=== PATIENT | female | born 1975 | race Caucasian/White ===

== ENCOUNTER 2016-08-31 13:33 | Outpatient (CLI) | payer OTHER ==
--- NOTE | 2016-08-31 18:10 | DIAGNOSTIC IMAGING REPORT ---
PROCEDURE: MG UNILATERAL DIAG-LT W/CAD INDICATION: LT BREAST MASS TECHNIQUE: Standard CC and MLO views of the left breast. Spot compression mammographic views of the left breast in the CC and MLO projection. A direct lateral left breast mammogram using CAD. The patient then went to ultrasound where galeano-scale and color Doppler sonographic imaging of the left breast was performed. COMPARISON: 11/13/2015, 02/08/2015, 11/23/2012 FINDINGS: Mammograms: Heterogeneous, moderately dense fibroglandular tissue is present in the left breast. An ill-defined nodular region is present adjacent to the palpable lump marker in the medial left breast on the CC view. Slight skin thickening, most evident in the direct lateral and MLO view compared to prior films. No obvious architectural distortion. Ultrasound: Heterogeneous fibrous and fibrocystic tissue is seen. In the upper inner left breast, there is a 12 mm cluster of ectatic ducts and probably apocrine metaplasia. One of the cystic spaces has increased slightly in size compared to the prior study but remains overall fairly stable in morphology. No increase in vascularity or solid component. There are no new suspicious solid lesions or abnormal shadowing. In the periareolar region, ductal ectasia is prominent. No definite suspicious infiltrative changes of the skin. Similar heterogeneous fibrocystic tissue is seen in the anterior right breast. IMPRESSION: 1. Palpable abnormality corresponds to a small focus of apocrine metaplasia/fibrocystic change in the upper inner left breast, similar to slightly more prominent (with respect to the cystic space) compared to the prior study. No suspicious change. 2. Incidental skin thickening in the periareolar region of the left breast with associated history of slight retraction of the left nipple. No definite inflammatory changes in the periareolar breast tissue. Clinical follow-up however is recommended. 3. Early follow-up left breast ultrasound at the time of screening mammography is recommended to ascertain stability (3 months). 4. Findings and recommendations were discussed with the patient. RESULT CODE: 3- Probably benign. A. A negative report should not delay biopsy if a dominant or clinically suspicious mass is present. 10-15% of cancers are not identified by x-ray. B. A negative report may reinforce clinical impression. C. Adenosis and dense breasts may obscure an underlying neoplasm. D. False positive reports average 6-10%. E.. A yearly screening mammogram is recommended. A reminder letter will be scheduled.
== END 2016-08-31 23:00 ==
LOC: MAM SRH 13:33
DX: N63 Unspecified lump in breast (principal)

== ENCOUNTER 2016-09-23 18:21 | Emergency (ER) | payer OTHER ==
--- NOTE | 2016-09-23 20:21 | DIAGNOSTIC IMAGING REPORT ---
PROCEDURE: XR CHEST 1 VIEW INDICATION: CHEST PAIN TECHNIQUE: Portable AP view (1920 hours). COMPARISON: Compared to chest x-ray on 12/10/2014. FINDINGS: Allowing for overlying wires and electrodes, lungs are clear. Heart and mediastinum are normal. Thorax is normal. IMPRESSION: 1. Negative chest.
--- NOTE | 2016-09-23 22:51 | ED NURSING NOTES ---
Clinical Report - Nurses [facility] [address] [place] [address] 09/23/2016 18:22 Patient: MELECIO JONES TRIAGE Triage time 18:25. Acuity: LEVEL 3. Chief Complaint: CHEST PAIN and (Onset 3 hours ago substernal chest pain that has developed into left upper chest pain that radiates into left shoulder, also epigastric pain. Pain 7/10, pain is not reproducible.). MARK COMA SCORE: [place] Coma Scale: 15- eyes open spontaneously (4); best verbal response- oriented x 4 (5); best motor response- obeys commands (6). --18:35 Pérez Drake R.N. 18:27 09/23/16. BP: 155/98 (regular adult cuff) taken on the left arm, while lying. HR: 108. RR: 16. O2 saturation: 98% on room air. Temp: 98.4 F (oral). Pain level now: 7/10. --18:35 Pérez Drake R.N. Weight: 79.3 kg stated. Height/Length: 61 inches Per Patient. BMI: 33. --18:32 Pérez Drake R.N. Medications Gabapentin Oral 800 mg, 3x a day. Tylenol Oral. --18:30 Pérez Drake R.N. Erivisartin?. --18:31 Pérez Drake R.N. Protonix Oral. --18:31 Pérez Drake R.N. Allergies Augmentin.(rash) Naprosyn. Definite Moderate(rash) NSAIDs. (bleeding ) --18:30 Pérez Drake R.N. History Arrived by private vehicle. Historian: patient. Accompanied by family. The patient has had difficulty breathing (mild). No sweating episodes or nausea. 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 SOCIAL HX: Heavy tobacco smoker (cigarette)- less than 1 pack per day. No alcohol use or drug use. ABUSE ASSESSMENT: No report of abuse. --18:35 Pérez Drake R.N. PROBLEMS: Periorbital Cellulitis. Chronic Headache. Abdominal Pain. Pharyngitis. URI. Chronic Back Pain. Gastroesophageal Reflux Disease. Gestational diabetes mellitus. Palpitations. Blood in stool. Back Injury. Asthma. Sinus Problems. Hypertension. Migraine Headache. --18:32 Préez Drake R.N. ADDITIONAL SURGERIES: Back Surgery. Colonoscopy. Lap hyster. Shoulder Surgery. Sinus Surgery. Tonsillectomy. --18:32 Pérez Drake R.N. Assessment GENERAL / NEURO / PSYCH: Alert. Oriented X 4. Appears in pain and anxious. RESPIRATORY: Respirations not labored. Chest nontender. Breath sounds within normal limits. CVS: Cardiac rhythm: sinus tachycardia; unifocal PVCs. Capillary refill less than 2 seconds. GI / : Abdomen soft and nontender. SKIN: Mucous membranes are pink. Skin is warm and dry. --18:35 Pérez Drake R.N. Interventions To treatment room. --18:35 Pérez Drake R.N. PHYSICAL ASSESSMENT To room via wheelchair. GENERAL / NEURO / PSYCH: Alert. Oriented X 4. Appears in pain and anxious. HEENT: Mucous membranes are pink. RESPIRATORY: Respirations not labored. Breath sounds within normal limits. CVS: Cardiac rhythm: sinus tachycardia; unifocal PVCs. Heart sounds within normal limits. Pulses within normal limits. Capillary refill less than 2 seconds. GI / : Abdomen soft and nontender. EXTREMITIES: No lower extremity edema. SKIN: Skin is warm and dry. Normal skin turgor. Skin is non-tender. --18:36 Pérez Drake R.N. NURSING PROGRESS NOTES Cardiac rhythm: sinus tachycardia; unifocal PVCs. telemetry monitor, pulse oximeter and NIBP monitor placed on patient; front desk monitor- Lead II and V1; monitor alarms on. Patient gowned. Head of bed elevated. Two patient identifiers checked. Call light placed in reach. Bed placed in lowest position. Brakes of bed on. Patient ready for evaluation- chart flagged. --18:37 Pérez Drake R.N. EKG time: (458). EKG was ordered, performed by a tech and shown to the ED physician. --18:41 Shannon Myers ER Tech1 18:57 09/23/2016 Aspirin PO Tablets 325 mg given. Allergies verified and confirmed 5 rights. --19:11 Pérez Drake R.N. 18:57 09/23/2016 Nitroglycerin SL Tablets 0.4 mg given. Allergies verified and confirmed 5 rights. --19:11 Pérez Drake R.N. 19:00 09/23/2016 Site #1 started via IV in the left hand with an 20g angiocath, with aseptic technique and good blood return; one attempt. Blood drawn: rainbow set. Labeled in the presence of the patient and sent to the lab. Saline lock flushed with 10 mL saline. --19:12 Pérez Drake R.N. 19:09/23/2016 Nitroglycerin SL Tablets 0.4 mg given. Allergies verified and confirmed 5 rights. --19:12 Pérez Drake R.N. 19:09/23/2016 Nitroglycerin SL Response: no adverse reaction symptoms are the same. The patient feels the same. --19:12 Pérez Drake R.N. Care transferred and report given (FRANCISCO JAVIER Castellanos). --19:16 Pérez Drake R.N. 20:20 09/23/2016 Acetaminophen (APAP) PO 1000 mg given. Allergies verified and confirmed 5 rights. --20:20 Sheriff Shi R.N. ( Received report from outgoing RN. Assessed patient at bedside, c/o headache, medicated with tylenol 1000mg po.). --20:21 Sheriff Shi R.N. 21:10 09/23/16. BP: 134/81. HR: 81. RR: 18. O2 saturation: 97% at 8 liters/minute. Pain level now: 12/17. --21:11 Sheriff Shi R.N. 22:57 09/23/2016 Site #1 removed upon discharge. Bandaid applied. --22:57 Sheriff Shi R.N. DISPOSITION / DISCHARGE Condition at departure: stable. No learning barriers present. Discharge instructions provided and reviewed with the patient. Reviewed medication(s) side effects, precautions, dosing and course information. Prescription(s) given to the patient. Patient verbalized understanding. Written instructions provided in Divehi. The patient was discharged by the physician. She was discharged home and accompanied by spouse. She left the Emergency Department ambulatory and via private vehicle. Spouse driving. --22:57 Sheriff Shi R.N. 22:52 09/23/16. BP: 146/92. HR: 76. RR: 18. O2 saturation: 96%. Temp: 98.2 F. Pain level now: 06/19. --22:57 Sheriff Shi R.N. Locked/Released at 09/23/2016 22:58 by Sheriff Shi R.N.
--- NOTE | 2016-09-23 22:51 | ED CLINICAL REPORT ---
Clinical Report - Physicians/Mid Levels [facility] [address] [place] [address] 09/23/2016 18:22 Patient: MELECIO JONES Time Seen: 18:44; initial patient contact, initial documentation, patient care assumed. Arrived- By private vehicle. Historian- patient. HISTORY OF PRESENT ILLNESS Chief Complaint: CHEST PAIN and DISCOMFORT. At its maximum, severity described as moderate. When seen in the E.D., severity described as moderate. Modifying factors. Not worsened by anything. Not relieved by anything. 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 It was abrupt in onset and has been constant. Onset during standing at sink doing dishes. It is described as pressure and "pain" and it is described as located in the left chest area and radiating to the left shoulder. No nausea, vomiting or diaphoresis. She has had difficulty breathing at rest. Similar symptoms previously: None. Recent medical care: Not recently seen/assessed. REVIEW OF SYSTEMS No cough. All systems otherwise negative, except as recorded above. PAST HISTORY See nurses notes. PROBLEMS: Periorbital Cellulitis. Chronic Headache. Abdominal Pain. Pharyngitis. URI. Chronic Back Pain. Gastroesophageal Reflux Disease. Gestational diabetes mellitus. Palpitations. Blood in stool. Back Injury. Asthma. Sinus Problems. Hypertension. Migraine Headache. --18:32 Pérez Drake R.N. ADDITIONAL SURGERIES: Back Surgery. Colonoscopy. Lap hyster. Shoulder Surgery. Sinus Surgery. Tonsillectomy. --18:32 Pérez Drake R.N. SOCIAL HISTORY Heavy tobacco smoker. No alcohol use or drug use. No recent travel. Is a local resident. FAMILY HISTORY History of heart disease in first-degree relative (father). ADDITIONAL NOTES The nursing notes have been reviewed with agreement regarding the chief complaint, HPI, ROS, PMH and patient medications and allergies. PHYSICAL EXAM Vital Signs: 09/23/2016 18:27 BP: 155/98. HR: 108. RR: 16. O2 saturation: 98%. Temp: 98.4 F. Pain level now: 11/16. Have been reviewed as abnormal. Hypertensive. Tachycardic. Respiratory rate normal. Temperature normal. Oxygen saturation normal. Appearance: Alert. Oriented X3. No acute distress. Eyes: Pupils equal, round and reactive to light. Eyes normal inspection. ENT: Pharynx normal. Neck: Normal inspection. Neck supple. CVS: Heart rate / rhythm abnormal. Tachycardia (ventricular rate = 110). Heart sounds normal. Pulses normal. Respiratory: No respiratory distress. Breath sounds normal. Chest nontender. Back: Normal external inspection. Skin: Skin warm and dry. Normal skin color. No rash. Normal skin turgor. Extremities: Extremities exhibit normal ROM. No lower extremity edema. Neuro: Oriented X 3. No motor deficit. No sensory deficit. LABS, X-RAYS, AND EKG EKG: EKG time: (1830). No acute process. No acute ischemia. Normal EKG. Rate: 109. Regular narrow-complex tachycardia (ventricular rate 109). Sinus tachycardia. Normal EKG. The study has been interpreted contemporaneously by me (and dr bello). The EKG appears to be a good tracing. Interpretation time: 1930. Chest X-ray: Normal Chest X-Ray. (IMPRESSION: 1. Negative chest. Electronically Final signed by:Cholo Fatima MD 09/23/2016 8:16:43 PM). The X-rays were interpreted by the radiologist and contemporaneously by me. PROGRESS AND PROCEDURES Course of Care: 18:49 09/23/16. pt has brief david, nothing alarming 2109. pt updated with current results and aware we are waiting on 2nd set of enzymes 22:49 09/23/16. Care accepted from Eben Zapata, went over history and findings from current w/u. 2nd set of CE's were again neg. i confirmed H&P and agree with her findings. Differential Diagnosis: I considered muscle strain, costochondritis, myositis, pleurisy, myocardial infarction, intermediate coronary syndrome, unstable angina, angina, aortic dissection, mitral valve prolapse, pericarditis, palpitations, pulmonary embolism, pneumonia, pneumothorax, lung cancer, gastroesophageal reflux disease, esophagitis and esophageal spasm as a possible cause of chest pain in this patient. This is a partial list of diagnoses considered. Above considerations are based on history, physical exam, reassessment, laboratory data, X-Ray data and EKG. Differential diagnosis was discussed with patient. Disposition: Discharged home in good and improved condition. Condition: good. CLINICAL IMPRESSION Atypical chest pain .12 lead EKG performed. INSTRUCTIONS Your Current Medications: CONTINUE TAKING THE FOLLOWING MEDICATIONS: Erivisartin?*. Gabapentin Oral : 800 mg 3x a day. Protonix Oral. Tylenol Oral. Prescription Medications: Tramadol 50 mg: take 1 orally every 6 hours as needed for pain and stiffness. Do not take more than 8 tablets in a 24 hour period. Dispense twenty (20). No refills. Follow-up: Follow up with your doctor in about two days. Call for an appointment. Screening today revealed the patient's blood pressure to be in the pre-hypertensive range. The patient should follow up with a primary care provider for blood pressure management. (Electronically signed by Demetrius aVlenzuela Dr. 09/24/2016 0:01)
--- NOTE | 2016-09-23 22:51 | ED ORDER SUMMARY ---
..... Patient: MELECIO JONES OrderSheet [facility] VisitID: [id number] [address] [place] [address] 41y, F Registration Date/Time: 09/23/2016 ORDER SHEET Weight: 79.3 kg (stated) Allergies: Augmentin, Naprosyn, NSAIDs GENERAL ORDERS: Chest 1V Urgent (18:49 09/23/2016 HBivens A.R.N.P.) (Ack 18:52 LNations ER Tech1) (19:27 MCampbell) Investigator Utility Bill Complaints (Continuous) (18:49 09/23/2016 HBivens A.R.N.P.) (18:51 LNations ER Tech1) CBC w Diff Urgent (18:49 09/23/2016 HBivens A.R.N.P.) (Ack 18:52 LNations ER Tech1) (19:12 JSimbeck R.N.) CMP Urgent (18:49 09/23/2016 HBivens A.R.N.P.) (Ack 18:52 LNations ER Tech1) (19:12 JSimbeck R.N.) CPK Urgent (18:49 09/23/2016 HBivens A.R.N.P.) (Ack 18:52 LNations ER Tech1) (19:12 JSimbeck R.N.) Troponin-I Urgent (18:49 09/23/2016 HBivens A.R.N.P.) (Ack 18:52 LNations ER Tech1) (19:12 JSimbeck R.N.) Serum Qualitative Urgent (18:49 09/23/2016 HBivens A.R.N.P.) (Ack 18:52 LNations ER Tech1) (19:12 JSimbeck R.N.) Oxygen (2 L/min) (NC) (18:49 09/23/2016 HBivens A.R.N.P.) (Ack 18:52 LNations ER Tech1) (18:55 JSimbeck R.N.) EKG - ER Stat (18:52 09/23/2016 LNations ER Tech1 verbal order read back to HBivens A.R.N.P.) (18:52 LNations ER Tech1) Troponin-I Urgent (19:44 09/23/2016 HBivens A.R.N.P.) (Ack 20:18 CHategekimana) CPK Urgent (19:44 09/23/2016 HBivens A.R.N.P.) (Ack 20:18 CHategekimana) MEDICATION ORDERS: Aspirin PO 325 mg (Do not crush or chew, NOW) (18:49 09/23/2016 HBivens A.R.N.P.) (19:11 JSimbeck R.N.) NitroGLYCERIN SL 0.4 mg (x3 PRN Chest Pain) (18:49 09/23/2016 HBivens A.R.N.P.) (19:11 CHAYAimbeck R.N.) Acetaminophen PO 1,000 mg (NOW) (20:15 09/23/2016 HBivens A.R.N.P.) (20:20 Chiki R.N.) IV FLUIDS: IV Saline Lock (18:49 09/23/2016 HBivens A.R.N.P.) (19:12 JSimbeck R.N.) ORDER SHEET NOTES: [Electronically signed by Sheriff Beena Shi (22:58 09/23/2016)] [Electronically signed by Demetrius Valenzuela Dr. (00:01 09/24/2016)] [Electronically locked/signed by Sheriff Beena Shi (22:58 09/23/2016)]
--- NOTE | 2016-09-23 22:51 | ED NURSING NOTES ---
Clinical Report - Nurses [facility] [address] [place] [address] 09/23/2016 18:22 Patient: MELECIO JONES TRIAGE Triage time 18:25. Acuity: LEVEL 3. Chief Complaint: CHEST PAIN and (Onset 3 hours ago substernal chest pain that has developed into left upper chest pain that radiates into left shoulder, also epigastric pain. Pain 7/10, pain is not reproducible.). MARK COMA SCORE: [place] Coma Scale: 15- eyes open spontaneously (4); best verbal response- oriented x 4 (5); best motor response- obeys commands (6). --18:35 Pérez Drake R.N. 18:27 09/23/16. BP: 155/98 (regular adult cuff) taken on the left arm, while lying. HR: 108. RR: 16. O2 saturation: 98% on room air. Temp: 98.4 F (oral). Pain level now: 7/10. --18:35 Pérez Drake R.N. Weight: 79.3 kg stated. Height/Length: 61 inches Per Patient. BMI: 33. --18:32 Pérez Drake R.N. Medications Gabapentin Oral 800 mg, 3x a day. Tylenol Oral. --18:30 Pérez Drake R.N. Erivisartin?. --18:31 Pérez Drake R.N. Protonix Oral. --18:31 Pérez Drake R.N. Allergies Augmentin.(rash) Naprosyn. Definite Moderate(rash) NSAIDs. (bleeding ) --18:30 Pérez Drake R.N. History Arrived by private vehicle. Historian: patient. Accompanied by family. The patient has had difficulty breathing (mild). No sweating episodes or nausea. 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 SOCIAL HX: Heavy tobacco smoker (cigarette)- less than 1 pack per day. No alcohol use or drug use. ABUSE ASSESSMENT: No report of abuse. --18:35 Pérez Drake R.N. PROBLEMS: Periorbital Cellulitis. Chronic Headache. Abdominal Pain. Pharyngitis. URI. Chronic Back Pain. Gastroesophageal Reflux Disease. Gestational diabetes mellitus. Palpitations. Blood in stool. Back Injury. Asthma. Sinus Problems. Hypertension. Migraine Headache. --18:32 Pérez Drake R.N. ADDITIONAL SURGERIES: Back Surgery. Colonoscopy. Lap hyster. Shoulder Surgery. Sinus Surgery. Tonsillectomy. --18:32 Pérez Drake R.N. Assessment GENERAL / NEURO / PSYCH: Alert. Oriented X 4. Appears in pain and anxious. RESPIRATORY: Respirations not labored. Chest nontender. Breath sounds within normal limits. CVS: Cardiac rhythm: sinus tachycardia; unifocal PVCs. Capillary refill less than 2 seconds. GI / : Abdomen soft and nontender. SKIN: Mucous membranes are pink. Skin is warm and dry. --18:35 Pérez Drake R.N. Interventions To treatment room. --18:35 Pérez Drake R.N. PHYSICAL ASSESSMENT To room via wheelchair. GENERAL / NEURO / PSYCH: Alert. Oriented X 4. Appears in pain and anxious. HEENT: Mucous membranes are pink. RESPIRATORY: Respirations not labored. Breath sounds within normal limits. CVS: Cardiac rhythm: sinus tachycardia; unifocal PVCs. Heart sounds within normal limits. Pulses within normal limits. Capillary refill less than 2 seconds. GI / : Abdomen soft and nontender. EXTREMITIES: No lower extremity edema. SKIN: Skin is warm and dry. Normal skin turgor. Skin is non-tender. --18:36 Pérez Drake R.N. NURSING PROGRESS NOTES Cardiac rhythm: sinus tachycardia; unifocal PVCs. monitor and storage bin tender, pulse oximeter and NIBP monitor placed on patient; cardiac rehabilitation specialist- Lead II and V1; monitor alarms on. Patient gowned. Head of bed elevated. Two patient identifiers checked. Call light placed in reach. Bed placed in lowest position. Brakes of bed on. Patient ready for evaluation- chart flagged. --18:37 Pérez Drake R.N. EKG time: (604). EKG was ordered, performed by a tech and shown to the ED physician. --18:41 Shannon Myers ER Tech1 18:57 09/23/2016 Aspirin PO Tablets 325 mg given. Allergies verified and confirmed 5 rights. --19:11 Pérez Drake R.N. 18:57 09/23/2016 Nitroglycerin SL Tablets 0.4 mg given. Allergies verified and confirmed 5 rights. --19:11 Pérez Drake R.N. 19:00 09/23/2016 Site #1 started via IV in the left hand with an 20g angiocath, with aseptic technique and good blood return; one attempt. Blood drawn: rainbow set. Labeled in the presence of the patient and sent to the lab. Saline lock flushed with 10 mL saline. --19:12 Pérez Drake R.N. 19:09/23/2016 Nitroglycerin SL Tablets 0.4 mg given. Allergies verified and confirmed 5 rights. --19:12 Pérez Drake R.N. 19:09/23/2016 Nitroglycerin SL Response: no adverse reaction symptoms are the same. The patient feels the same. --19:12 Pérez Drake R.N. Care transferred and report given (FRANCISCO JAVIER Castellanos). --19:16 Pérez Drake R.N. 20:20 09/23/2016 Acetaminophen (APAP) PO 1000 mg given. Allergies verified and confirmed 5 rights. --20:20 Sheriff Shi R.N. ( Received report from outgoing RN. Assessed patient at bedside, c/o headache, medicated with tylenol 1000mg po.). --20:21 Sheriff Shi R.N. 21:10 09/23/16. BP: 134/81. HR: 81. RR: 18. O2 saturation: 97% at 8 liters/minute. Pain level now: 12/17. --21:11 Sheriff Shi R.N. 22:57 09/23/2016 Site #1 removed upon discharge. Bandaid applied. --22:57 Sheriff Shi R.N. DISPOSITION / DISCHARGE Condition at departure: stable. No learning barriers present. Discharge instructions provided and reviewed with the patient. Reviewed medication(s) side effects, precautions, dosing and course information. Prescription(s) given to the patient. Patient verbalized understanding. Written instructions provided in Greek. The patient was discharged by the physician. She was discharged home and accompanied by spouse. She left the Emergency Department ambulatory and via private vehicle. Spouse driving. --22:57 Sheriff Shi R.N. 22:52 09/23/16. BP: 146/92. HR: 76. RR: 18. O2 saturation: 96%. Temp: 98.2 F. Pain level now: 06/19. --22:57 Sheriff Shi R.N. Locked/Released at 09/23/2016 22:58 by Sheriff Shi R.N.
--- NOTE | 2016-09-23 22:51 | ED ORDER SUMMARY ---
..... Patient: MELECIO JONES OrderSheet [facility] VisitID: [id number] [address] [place] [address] 41y, F Registration Date/Time: 09/23/2016 ORDER SHEET Weight: 79.3 kg (stated) Allergies: Augmentin, Naprosyn, NSAIDs GENERAL ORDERS: Chest 1V Urgent (18:49 09/23/2016 HBivens A.R.N.P.) (Ack 18:52 LNations ER Tech1) (19:27 MCampbell) Landscape Crew Leader (Continuous) (18:49 09/23/2016 HBivens A.R.N.P.) (18:51 LNations ER Tech1) CBC w Diff Urgent (18:49 09/23/2016 HBivens A.R.N.P.) (Ack 18:52 LNations ER Tech1) (19:12 JSimbeck R.N.) CMP Urgent (18:49 09/23/2016 HBivens A.R.N.P.) (Ack 18:52 LNations ER Tech1) (19:12 JSimbeck R.N.) CPK Urgent (18:49 09/23/2016 HBivens A.R.N.P.) (Ack 18:52 LNations ER Tech1) (19:12 JSimbeck R.N.) Troponin-I Urgent (18:49 09/23/2016 HBivens A.R.N.P.) (Ack 18:52 LNations ER Tech1) (19:12 JSimbeck R.N.) Serum Qualitative Urgent (18:49 09/23/2016 HBivens A.R.N.P.) (Ack 18:52 LNations ER Tech1) (19:12 JSimbeck R.N.) Oxygen (2 L/min) (NC) (18:49 09/23/2016 HBivens A.R.N.P.) (Ack 18:52 LNations ER Tech1) (18:55 JSimbeck R.N.) EKG - ER Stat (18:52 09/23/2016 LNations ER Tech1 verbal order read back to HBivens A.R.N.P.) (18:52 LNations ER Tech1) Troponin-I Urgent (19:44 09/23/2016 HBivens A.R.N.P.) (Ack 20:18 CHategekimana) CPK Urgent (19:44 09/23/2016 HBivens A.R.N.P.) (Ack 20:18 CHategekimana) MEDICATION ORDERS: Aspirin PO 325 mg (Do not crush or chew, NOW) (18:49 09/23/2016 HBivens A.R.N.P.) (19:11 JSimbeck R.N.) NitroGLYCERIN SL 0.4 mg (x3 PRN Chest Pain) (18:49 09/23/2016 HBivens A.R.N.P.) (19:11 CAHYAimbeck R.N.) Acetaminophen PO 1,000 mg (NOW) (20:15 09/23/2016 HBivens A.R.N.P.) (20:20 Chiki R.N.) IV FLUIDS: IV Saline Lock (18:49 09/23/2016 HBivens A.R.N.P.) (19:12 JSimbeck R.N.) ORDER SHEET NOTES: [Electronically signed by Sheriff Beena Shi (22:58 09/23/2016)] [Electronically signed by Demetrius Valenzuela Dr. (00:01 09/24/2016)] [Electronically locked/signed by Sheriff Beena Shi (22:58 09/23/2016)]
--- NOTE | 2016-09-24 00:02 | ED MAR SUMMARY ---
..... Medication Administration Record [facility] [address] [place] [address] Patient: MELECIO JONES Visit ID: [id number] 41y, F Weight: 79.3 kg Height/Length: 61 in BMI: 33 ALLERGIES: Augmentin, Naprosyn, NSAIDs Given 18:57 09/23/2016 Pérez Drake R.N. Medication Administered: ASPIRIN [PO], Dose: 325 mg Tablets PO. Medication Ordered: Aspirin PO 325 mg (Do not crush or chew, NOW). Given 18:57 09/23/2016 Pérez Drake R.N. Medication Administered: NITROGLYCERIN [SL], Dose: 0.4 mg Tablets SL. Medication Ordered: NitroGLYCERIN SL 0.4 mg (x3 PRN Chest Pain). Given 19:05 09/23/2016 Pérez Drake R.N. Medication Administered: NITROGLYCERIN [SL], Dose: 0.4 mg Tablets SL. Medication Ordered: NitroGLYCERIN SL 0.4 mg (x3 PRN Chest Pain). Given 20:20 09/23/2016 Sheriff Shi R.N. Medication Administered: ACETAMINOPHEN [PO] (APAP), Dose: 1000 mg PO. Medication Ordered: Acetaminophen PO 1,000 mg (NOW).
--- NOTE | 2016-09-24 00:02 | ED MAR SUMMARY ---
..... Medication Administration Record [facility] [address] [place] [address] Patient: MELECIO JONES Visit ID: [id number] 41y, F Weight: 79.3 kg Height/Length: 61 in BMI: 33 ALLERGIES: Augmentin, Naprosyn, NSAIDs Given 18:57 09/23/2016 Pérez Drake R.N. Medication Administered: ASPIRIN [PO], Dose: 325 mg Tablets PO. Medication Ordered: Aspirin PO 325 mg (Do not crush or chew, NOW). Given 18:57 09/23/2016 Pérez Drake R.N. Medication Administered: NITROGLYCERIN [SL], Dose: 0.4 mg Tablets SL. Medication Ordered: NitroGLYCERIN SL 0.4 mg (x3 PRN Chest Pain). Given 19:05 09/23/2016 Pérez Drake R.N. Medication Administered: NITROGLYCERIN [SL], Dose: 0.4 mg Tablets SL. Medication Ordered: NitroGLYCERIN SL 0.4 mg (x3 PRN Chest Pain). Given 20:20 09/23/2016 Sheriff Shi R.N. Medication Administered: ACETAMINOPHEN [PO] (APAP), Dose: 1000 mg PO. Medication Ordered: Acetaminophen PO 1,000 mg (NOW).
--- NOTE | 2016-09-24 00:02 | ED MED RECONCILIATION SUMMARY ---
Patient: MELECIO JONES Medication Reconciliation Report [facility] VisitID: [id number] [address] [place] [address] 41y, F Registration Date/Time: 09/23/2016 Weight: 79.3 kg Height/Length: 61 in. BMI: 33.0 ALLERGIES: Augmentin, Naprosyn, NSAIDs The patient's Home Medications are listed below: CONTINUE TAKING THE FOLLOWING MEDICATIONS: Erivisartin? Gabapentin Oral 800 mg, 3x a day Protonix Oral Tylenol Oral The source(s) of the original Home Medication information: Not obtained. The following Medications were given to the patient in the Emergency Department: Aspirin [PO] PO 325 mg, administered: 09/23/2016 6:57:00 PM Nitroglycerin [SL] SL 0.4 mg, administered: 09/23/2016 6:57:00 PM Nitroglycerin [SL] SL 0.4 mg, administered: 09/23/2016 7:05:00 PM Acetaminophen [PO] PO 1000 mg, administered: 09/23/2016 8:20:00 PM The following Medications were prescribed to the patient: Tramadol 50 mg: take 1 orally every 6 hours as needed for pain and stiffness. Do not take more than 8 tablets in a 24 hour period. Dispense twenty (20). No refills. -- Demetrius Valenzuela Dr.
--- NOTE | 2016-09-24 00:02 | ED DISCHARGE INSTRUCTIONS ---
Patient: MELECIO JONES General Instructions [facility] VisitID: [id number] [address] [place] [address] 41y, F Registration Date/Time: 09/23/2016 Atypical chest pain .12 lead EKG performed. INSTRUCTIONS Your Current Medications: CONTINUE TAKING THE FOLLOWING MEDICATIONS: Erivisartin?*. Gabapentin Oral : 800 mg 3x a day. Protonix Oral. Tylenol Oral. Prescription Medications: Tramadol 50 mg: take 1 orally every 6 hours as needed for pain and stiffness. Do not take more than 8 tablets in a 24 hour period. Dispense twenty (20). No refills. Follow-up: Follow up with your doctor in about two days. Call for an appointment. Screening today revealed the patient's blood pressure to be in the pre-hypertensive range. The patient should follow up with a primary care provider for blood pressure management. ADDITIONAL INFORMATION Chest Pain, Noncardiac Based on your visit today, the exact cause of your chest pain is not certain. Your condition does not seem serious and your pain does not appear to be coming from your heart. However, sometimes the signs of a serious problem take more time to appear. Therefore, please watch for the warning signs listed below. Home Care: Rest today and avoid strenuous activity. Take any prescribed medicine as directed. Follow Up with your doctor or this facility as instructed or if you do not start to feel better within 24 hours. Get Prompt Medical Attention if any of the following occur: A change in the type of pain: if it feels different, becomes more severe, lasts longer, or begins to spread into your shoulder, arm, neck, jaw or back Shortness of breath or increased pain with breathing Cough with dark colored sputum (phlegm) or blood Weakness, dizziness, or fainting Fever of 100.4F (38C) or higher, or as directed by your healthcare provider Swelling, pain or redness in one leg Tramadol Hydrochloride Oral tablet What is this medicine? TRAMADOL (TRA ma dole) is a pain reliever. It is used to treat moderate to severe pain in adults. How should I use this medicine? Take this medicine by mouth with a full glass of water. Follow the directions on the prescription label. If the medicine upsets your stomach, take it with food or milk. Do not take more medicine than you are told to take. Talk to your stuffed casing tier regarding the use of this medicine in children. Special care may be needed. What side effects may I notice from receiving this medicine? Side effects that you should report to your doctor or health plant health care technician as soon as possible: allergic reactions like skin rash, itching or hives, swelling of the face, lips, or tongue breathing difficulties, wheezing confusion itching light headedness or fainting spells redness, blistering, peeling or loosening of the skin, including inside the mouth seizures Side effects that usually do not require medical attention (report to your doctor or health plant health care technician if they continue or are bothersome): constipation dizziness drowsiness headache nausea, vomiting What may interact with this medicine? Do not take this medicine with any of the following medications: MAOIs like Carbex, Eldepryl, Marplan, Nardil, and Parnate This medicine may also interact with the following medications: alcohol or medicines that contain alcohol antihistamines benzodiazepines bupropion carbamazepine or oxcarbazepine clozapine cyclobenzaprine digoxin furazolidone linezolid medicines for depression, anxiety, or psychotic disturbances medicines for migraine headache like almotriptan, eletriptan, frovatriptan, naratriptan, rizatriptan, sumatriptan, zolmitriptan medicines for pain like pentazocine, buprenorphine, butorphanol, meperidine, nalbuphine, and propoxyphene medicines for sleep muscle relaxants naltrexone phenobarbital phenothiazines like perphenazine, thioridazine, chlorpromazine, mesoridazine, fluphenazine, prochlorperazine, promazine, and trifluoperazine procarbazine warfarin What if I miss a dose? If you miss a dose, take it as soon as you can. If it is almost time for your next dose, take only that dose. Do not take double or extra doses. Where should I keep my medicine? Keep out of the reach of children. Store at room temperature between 15 and 30 degrees C (59 and 86 degrees F). Keep container tightly closed. Throw away any unused medicine after the expiration date. What should I tell my health care provider before I take this medicine? They need to know if you have any of these conditions: brain tumor depression drug abuse or addiction head injury if you frequently drink alcohol containing drinks kidney disease or trouble passing urine liver disease lung disease, asthma, or breathing problems seizures or epilepsy suicidal thoughts, plans, or attempt; a previous suicide attempt by you or a family member an unusual or allergic reaction to tramadol, codeine, other medicines, foods, dyes, or preservatives or trying to get breast-feeding What should I watch for while using this medicine? Tell your doctor or health plant health care technician if your pain does not go away, if it gets worse, or if you have new or a different type of pain. You may develop tolerance to the medicine. Tolerance means that you will need a higher dose of the medicine for pain relief. Tolerance is normal and is expected if you take this medicine for a long time. Do not suddenly stop taking your medicine because you may develop a severe reaction. Your body becomes used to the medicine. This does NOT mean you are addicted. Addiction is a behavior related to getting and using a drug for a non-medical reason. If you have pain, you have a medical reason to take pain medicine. Your doctor will tell you how much medicine to take. If your doctor wants you to stop the medicine, the dose will be slowly lowered over time to avoid any side effects. You may get drowsy or dizzy. Do not drive, use machinery, or do anything that needs mental alertness until you know how this medicine affects you. Do not stand or sit up quickly, especially if you are an older patient. This reduces the risk of dizzy or fainting spells. Alcohol can increase or decrease the effects of this medicine. Avoid alcoholic drinks. You may have constipation. Try to have a bowel movement at least every 2 to 3 days. If you do not have a bowel movement for 3 days, call your doctor or health plant health care technician. Your mouth may get dry. Chewing sugarless gum or sucking hard candy, and drinking plenty of water may help. Contact your doctor if the problem does not go away or is severe. You have been given the following additional information: Chest Pain, Noncardiac Tramadol Hydrochloride Oral tablet (Electronically signed by Demetrius Valenzuela Dr. 09/24/2016 0:01)
--- NOTE | 2016-09-24 00:02 | ED DISCHARGE INSTRUCTIONS ---
Patient: MELECIO JONES General Instructions [facility] VisitID: [id number] [address] [place] [address] 41y, F Registration Date/Time: 09/23/2016 Atypical chest pain .12 lead EKG performed. INSTRUCTIONS Your Current Medications: CONTINUE TAKING THE FOLLOWING MEDICATIONS: Erivisartin?*. Gabapentin Oral : 800 mg 3x a day. Protonix Oral. Tylenol Oral. Prescription Medications: Tramadol 50 mg: take 1 orally every 6 hours as needed for pain and stiffness. Do not take more than 8 tablets in a 24 hour period. Dispense twenty (20). No refills. Follow-up: Follow up with your doctor in about two days. Call for an appointment. Screening today revealed the patient's blood pressure to be in the pre-hypertensive range. The patient should follow up with a primary care provider for blood pressure management. ADDITIONAL INFORMATION Chest Pain, Noncardiac Based on your visit today, the exact cause of your chest pain is not certain. Your condition does not seem serious and your pain does not appear to be coming from your heart. However, sometimes the signs of a serious problem take more time to appear. Therefore, please watch for the warning signs listed below. Home Care: Rest today and avoid strenuous activity. Take any prescribed medicine as directed. Follow Up with your doctor or this facility as instructed or if you do not start to feel better within 24 hours. Get Prompt Medical Attention if any of the following occur: A change in the type of pain: if it feels different, becomes more severe, lasts longer, or begins to spread into your shoulder, arm, neck, jaw or back Shortness of breath or increased pain with breathing Cough with dark colored sputum (phlegm) or blood Weakness, dizziness, or fainting Fever of 100.4F (38C) or higher, or as directed by your healthcare provider Swelling, pain or redness in one leg Tramadol Hydrochloride Oral tablet What is this medicine? TRAMADOL (TRA ma dole) is a pain reliever. It is used to treat moderate to severe pain in adults. How should I use this medicine? Take this medicine by mouth with a full glass of water. Follow the directions on the prescription label. If the medicine upsets your stomach, take it with food or milk. Do not take more medicine than you are told to take. Talk to your chiropractic assistant regarding the use of this medicine in children. Special care may be needed. What side effects may I notice from receiving this medicine? Side effects that you should report to your doctor or health student career development specialist as soon as possible: allergic reactions like skin rash, itching or hives, swelling of the face, lips, or tongue breathing difficulties, wheezing confusion itching light headedness or fainting spells redness, blistering, peeling or loosening of the skin, including inside the mouth seizures Side effects that usually do not require medical attention (report to your doctor or health student career development specialist if they continue or are bothersome): constipation dizziness drowsiness headache nausea, vomiting What may interact with this medicine? Do not take this medicine with any of the following medications: MAOIs like Carbex, Eldepryl, Marplan, Nardil, and Parnate This medicine may also interact with the following medications: alcohol or medicines that contain alcohol antihistamines benzodiazepines bupropion carbamazepine or oxcarbazepine clozapine cyclobenzaprine digoxin furazolidone linezolid medicines for depression, anxiety, or psychotic disturbances medicines for migraine headache like almotriptan, eletriptan, frovatriptan, naratriptan, rizatriptan, sumatriptan, zolmitriptan medicines for pain like pentazocine, buprenorphine, butorphanol, meperidine, nalbuphine, and propoxyphene medicines for sleep muscle relaxants naltrexone phenobarbital phenothiazines like perphenazine, thioridazine, chlorpromazine, mesoridazine, fluphenazine, prochlorperazine, promazine, and trifluoperazine procarbazine warfarin What if I miss a dose? If you miss a dose, take it as soon as you can. If it is almost time for your next dose, take only that dose. Do not take double or extra doses. Where should I keep my medicine? Keep out of the reach of children. Store at room temperature between 15 and 30 degrees C (59 and 86 degrees F). Keep container tightly closed. Throw away any unused medicine after the expiration date. What should I tell my health care provider before I take this medicine? They need to know if you have any of these conditions: brain tumor depression drug abuse or addiction head injury if you frequently drink alcohol containing drinks kidney disease or trouble passing urine liver disease lung disease, asthma, or breathing problems seizures or epilepsy suicidal thoughts, plans, or attempt; a previous suicide attempt by you or a family member an unusual or allergic reaction to tramadol, codeine, other medicines, foods, dyes, or preservatives or trying to get breast-feeding What should I watch for while using this medicine? Tell your doctor or health student career development specialist if your pain does not go away, if it gets worse, or if you have new or a different type of pain. You may develop tolerance to the medicine. Tolerance means that you will need a higher dose of the medicine for pain relief. Tolerance is normal and is expected if you take this medicine for a long time. Do not suddenly stop taking your medicine because you may develop a severe reaction. Your body becomes used to the medicine. This does NOT mean you are addicted. Addiction is a behavior related to getting and using a drug for a non-medical reason. If you have pain, you have a medical reason to take pain medicine. Your doctor will tell you how much medicine to take. If your doctor wants you to stop the medicine, the dose will be slowly lowered over time to avoid any side effects. You may get drowsy or dizzy. Do not drive, use machinery, or do anything that needs mental alertness until you know how this medicine affects you. Do not stand or sit up quickly, especially if you are an older patient. This reduces the risk of dizzy or fainting spells. Alcohol can increase or decrease the effects of this medicine. Avoid alcoholic drinks. You may have constipation. Try to have a bowel movement at least every 2 to 3 days. If you do not have a bowel movement for 3 days, call your doctor or health student career development specialist. Your mouth may get dry. Chewing sugarless gum or sucking hard candy, and drinking plenty of water may help. Contact your doctor if the problem does not go away or is severe. You have been given the following additional information: Chest Pain, Noncardiac Tramadol Hydrochloride Oral tablet (Electronically signed by Demetrius Valenzuela Dr. 09/24/2016 0:01)
--- NOTE | 2016-09-24 00:02 | ED MED RECONCILIATION SUMMARY ---
Patient: MELECIO JONES Medication Reconciliation Report [facility] VisitID: [id number] [address] [place] [address] 41y, F Registration Date/Time: 09/23/2016 Weight: 79.3 kg Height/Length: 61 in. BMI: 33.0 ALLERGIES: Augmentin, Naprosyn, NSAIDs The patient's Home Medications are listed below: CONTINUE TAKING THE FOLLOWING MEDICATIONS: Erivisartin? Gabapentin Oral 800 mg, 3x a day Protonix Oral Tylenol Oral The source(s) of the original Home Medication information: Not obtained. The following Medications were given to the patient in the Emergency Department: Aspirin [PO] PO 325 mg, administered: 09/23/2016 6:57:00 PM Nitroglycerin [SL] SL 0.4 mg, administered: 09/23/2016 6:57:00 PM Nitroglycerin [SL] SL 0.4 mg, administered: 09/23/2016 7:05:00 PM Acetaminophen [PO] PO 1000 mg, administered: 09/23/2016 8:20:00 PM The following Medications were prescribed to the patient: Tramadol 50 mg: take 1 orally every 6 hours as needed for pain and stiffness. Do not take more than 8 tablets in a 24 hour period. Dispense twenty (20). No refills. -- Demetrius Valenzuela Dr.
== END 2016-09-23 22:58 | disposition home or self-care (01) ==
LOC: ED SRH 18:21
DX: R07.89 Other chest pain (principal); I10 Essential (primary) hypertension; Z72.0 Tobacco use; Z79.899 Other long term (current) drug therapy; Z79.1 Long term (current) use of non-steroidal anti-inflammatories (NSAID); Z88.1 Allergy status to other antibiotic agents; Z88.6 Allergy status to analgesic agent
CPT/HCPCS: 90074; 90100; 90616; 92610; 95059; 98428

== ENCOUNTER 2016-11-17 13:35 | Outpatient (CLI) | payer OTHER ==
--- NOTE | 2016-11-24 10:02 | DIAGNOSTIC IMAGING REPORT ---
PROCEDURE: MG BILATERAL DIAGNOSTIC W/CAD INDICATION: Follow-up left breast cysts. Left nipple retraction. Family history breast carcinoma (aunts). TECHNIQUE: CC and MLO digital views of each breast with true-lateral digital view of the left breast. In addition, spot compression CC and MLO views were obtained of the upper central left breast (region of clinical concern). Finally , high-resolution left breast ultrasound was performed (18 mHz) with limited comparison images of the right breast.. COMPARISON: Comparison is made to left mammogram left breast ultrasound (08/31/2016), bilateral mammogram and bilateral breast ultrasound (11/13/2015), and screening mammogram (02/08/2015). FINDINGS: MAMMOGRAM: Computer-aided detection applied. Moderately dense and mildly nodular parenchymal pattern. Findings suggest mild skin thickening of the periareolar left breast. BREAST ULTRASOUND: There is heterogeneous parenchymal with stable mild cystic changes. IMPRESSION: 1. Findings suggest mild skin thickening in the periareolar left breast. While there is no evidence of underlying abnormality, MRI is recommended to further evaluate. In addition,, surgical consultation may be indicated 2. Findings discussed with the patient and called to Dr. Cordova (as requested). 3. (Findings also called to Dr. Leandro Sutton). RESULT CODE: 0- Incomplete; needs additional evaluation. A. A negative report should not delay biopsy if a dominant or clinically suspicious mass is present. 10-15% of cancers are not identified by x-ray. B. A negative report may reinforce clinical impression. C. Adenosis and dense breasts may obscure an underlying neoplasm. D. False positive reports average 6-10%. E.. A yearly screening mammogram is recommended. A reminder letter will be scheduled.
== END 2016-11-17 23:00 ==
LOC: MAM SRH 13:35
DX: N60.02 Solitary cyst of left breast (principal); Z80.3 Family history of malignant neoplasm of breast